=== PATIENT | female | born 1975 | race African-American/Black ===

== ENCOUNTER 2020-08-01 18:25 | Emergency (ER) | payer SELFPAY ==
[~2020-08-01 18:25] MED LIST: Iopamidol-370 76% 500 ML 1 ML ONE
[2020-08-01 19:01] LABS: #Basophils 0.1 thou/uL (0.0-0.2); #Eosinphils 0.1 thou/uL (0.0-0.7); #Lymphocytes 3.5 thou/uL (1.20-3.40); #Monocytes 0.5 thou/uL (0.11-0.59); #Neutrophils 3.9 thou/uL (1.40-6.50); %Basophils 1.7 % (0.0-1.0); %Eosinophils 1.8 % (0.0-10.0); %Lymphocytes 43.2 % (21.0-51.0); %Monocytes 5.6 % (0.0-10.0); %Neutrophils 47.7 % (42.0-75.0); Hemoglobin 12.3 g/dL (12.0-16.0); Mean Corpuscular HGB CONC 30.9 g/dL (32.0-36.0); Mean Corpuscular Hemoglobin 28.9 pg (27.0-31.0); Mean Corpuscular Volume 93.8 fL (78.0-98.0); Mean Platelet Volume 8.3 fL (7.4-10.4); Platelet Count 240 thou/uL (130-400); RBC Distribution Width 11.7 % (11.5-14.5); Red Blood Cell (RBC) Count 4.25 mill/uL (4.20-5.40); White Blood Cell (WBC) Count 8.2 thou/uL (4.8-10.8)
[2020-08-01 19:07] LABS: BHCG - Serum Negative (NEGATIVE); Pregs Control Background? CLEAR/WHITE (CLR/WHITE); Pregs Control Bar Appear? YES (CONTROL BAR)
[2020-08-01 19:21] LABS: ALT (SGPT) 13 U/L (8-55); AST (SGOT) 16 U/L (5-34); Albumin 3.9 g/dL (3.5-5.0); Alkaline Phosphatase 70 U/L (40-110); Anion Gap 11 mmol/L (10-20); BUN (Urea Nitrogen) 13 mg/dL (7.0-18.7); Bilirubin, Total 0.6 mg/dL (0.2-1.2); Calc. Creatinine Clearance 0 mL/min (70-130); Carbon Dioxide 25 mmol/L (22-29); Chloride 106 mmol/L (98-107); Globulin 3.6 g/dL (2.4-3.5); Glucose 90 mg/dL (70-105); Lipase 58 U/L (8-78); Potassium 3.9 mmol/L (3.5-5.1); Protein, Total 7.5 g/dL (6.0-8.3); Sodium 138 mmol/L (136-145)
[2020-08-01 20:11] LABS: Bilirubin Negative (Negative); Blood, Urine Negative (Negative); Clarity Clear (Clear); Glucose, Urine (Dipstick) Normal (Negative); Ketone, Urine Negative (Negative); Leukocyte Negative Leu/uL (Negative); Nitrite Negative (Negative); Protein, Urine (Dipstick) 10 mg/dL (Neg-Trace); Urobilinogen Normal mg/dL (Less than 2); pH, Urine 5.5 (5.0-9.0)
--- NOTE | 2020-08-01 23:03 | ULT ---
US Pelvic Transvag HISTORY: Right upper quadrant pain, nausea, loose stool. Menopause since 2019 COMPARISON: None. FINDINGS: The uterus measures 8.2 x 4.3 x 6.1 cm. The endometrium measures 4 mm in thickness. No uterine mass o r endometrial fluid is seen. There are small nonshadowing echogenic foci in the mid endometrium, likely microcalcifications.. The ovaries are not visualized. No adnexal mass or free fluid is identif ied. IMPRESSION: No significant abnormalities are seen.
--- NOTE | 2020-08-01 23:42 | CT ---
CT abdomen pelvis with IV contrast HISTORY: Right lower quadrant abdominal pain FINDINGS: There are minimal dependent changes in the lung bases. The patient is post cholecystectomy. There is fatty infiltration of the liver. The spleen, pancreas, adrenal glands and kidneys are normal. No free air, free fluid or lymphadenopathy seen in the abdomen or pelvis. The aorta is of normal addy janis. The small bowel loops are not abnormally dilated. A normal-appearing appendix is present. Uterus and ovaries are present. There is mild colonic diverticulosis without diverticulitis. No acute osseous abnormalities are seen. IMPRESSION: 1. Fatty liver 2. Mild colonic diverticulosis 3. No evidence of acute process
== END 2020-08-02 00:09 | disposition home or self-care (01) ==
LOC: ERS 18:25
DX: K57.30 Diverticulosis of large intestine without perforation or abscess without bleeding (principal); E03.9 Hypothyroidism, unspecified
CPT/HCPCS: 36415; 74177; 76856; 80053; 81003; 83690; 84703; 85025; Q9967